=== PATIENT | male | born 1985 | race Caucasian/White ===

== ENCOUNTER 2017-06-08 09:46 | Emergency (ER) | payer BC ==
[2017-06-08 10:05] VITALS: BP 142/83
--- NOTE | 2017-06-08 10:31 | EDM.PDOC ---
ED HPI GENERAL MEDICAL PROBLEM - General Chief Complaint: Genitourinary Problem Stated Complaint: redness and pain to groin Time Seen by Provider: 06/08/17 10:20 Source of Information: Reports: Patient History Limitations: Reports: No Limitations - History of Present Illness INITIAL COMMENTS - FREE TEXT/NARRATIVE: HISTORY AND PHYSICAL: History of present illness: [Patient comes to the emergency room complaining of pain and redness to his groin. Symptoms have been present for the past week. Believes that his symptoms started with chafing to his inguinal areas and have gradually intensified. Complains of some itching but primarily discomfort to his skin. Over the past couple of days he has noticed a bumpy sensation to his groin. He denies fever and chills. He's had no difficulty urinating or having bowel movements. No penile discharge. No abdominal pain, nausea, vomiting. He is involved in a monogamous relationship with his girlfriend whom he has been with for quite a while. He has tried numerous creams to this area including hydrocortisone and Aquaphor without any improvement in his symptoms.] Review of systems: As per history of present illness and below otherwise all systems reviewed and negative. Past medical history: As per history of present illness and as reviewed below otherwise noncontributory. Surgical history: As per history of present illness and as reviewed below otherwise noncontributory. Social history: No reported history of drug or alcohol abuse. Family history: As per history of present illness and as reviewed below otherwise noncontributory. Physical exam: HEENT: Atraumatic, normocephalic. Genitourinary: Normal-appearing circumcised phallus. Slightly raised confluent area of bright erythema. Is mildly tender with palpation. Nonblanching. Consistent with tinea. Extremities: Atraumatic. Neuro: Awake, alert, oriented. Motor and sensory unremarkable throughout. Exam nonfocal. Impression: [jock itch] Plan: [Discussed with patient that skin rash appears consistent with tinea. We discussed proper cleaning and thorough drying of the area. Educated him on using a counseling department chair on cool setting to completely dry his groin. Apply cream 3 times a day for the next 2 weeks. Establish care with a local PCP. Referral is made. Definitive disposition and diagnosis as appropriate pending reevaluation and review of above. - Related Data Allergies Allergy/AdvReac Type Severity Reaction Status Date / Time No Known Allergies Allergy Verified 06/08/17 10:03 Home Meds: Home Meds . [No Known Home Meds] 06/08/17 [History] Past Medical History - Past Health History Medical/Surgical History: Denies Medical/Surgical History Social & Family History - Family History Family Medical History: Noncontributory - Tobacco Use Smoking Status *Q: Current Every Day Smoker Years of Tobacco use: 10 Packs/Tins Daily: 1 - Recreational Drug Use Recreational Drug Use: No ED ROS GENERAL - Review of Systems Review Of Systems: ROS reveals no pertinent complaints other than HPI. ED EXAM, RENAL/ - Physical Exam Exam: See Below Course - Vital Signs Last Recorded V/S: Last Vital Signs Temp 97.7 F 06/08/17 10:04 Pulse 70 06/08/17 10:04 Resp 18 06/08/17 10:04 BP 142/83 H 06/08/17 10:04 Pulse Ox 97 06/08/17 10:04 - Orders/Labs/Meds Orders: Active Orders 24 hr Category Date Time Status CHLAMYDIA TRACHOMATIS/GC AMPLF Stat Lab 06/08/17 10:00 Stop Req Departure - Departure Time of Disposition: 10:30 Disposition: Home, Self-Care 01 Condition: Good Clinical Impression: Jock itch - Discharge Information Instructions: Jock Itch, [id number] Referrals: PCP,None [Primary Care Provider] - Forms: ED Department Discharge Additional Instructions: The following information is given to patients seen in the emergency department who are being discharged to home. This information is to outline your options for follow-up care. We provide all patients seen in our emergency department with a follow-up referral. The need for follow-up, as well as the timing and circumstances, are variable depending upon the specifics of your emergency department visit. If you don't have a primary care physician on staff, we will provide you with a referral. We always advise you to contact your personal physician following an emergency department visit to inform them of the circumstance of the visit and for follow-up with them and/or the need for any referrals to a consulting specialist. The emergency department will also refer you to a specialist when appropriate. This referral assures that you have the opportunity for follow-up care with a specialist. All of these measure are taken in an effort to provide you with optimal care, which includes your follow-up. Under all circumstances we always encourage you to contact your private physician who remains a resource for coordinating your care. When calling for follow-up care, please make the office aware that this follow-up is from your recent emergency room visit. If for any reason you are refused follow-up, please contact the [facility] emergency department at and asked to speak to the emergency department charge nurse. [facility] [address] [place] [id number] Establish care and follow-up at the clinic listed above in 48-72 hours. Apply Lotrimin cream to affected area 3 times a day for the next 2 weeks. This medication is available [id number]. Return to ER as needed as discussed.
== END 2017-06-08 10:43 | disposition home or self-care (01) ==
LOC: MW.ED 09:46
DX: B35.6 Tinea cruris (principal); F17.210 Nicotine dependence, cigarettes, uncomplicated
CPT/HCPCS: 99282